=== PATIENT | male | born 1965 | race Asian ===

== ENCOUNTER 2021-01-14 19:12 | Inpatient (IN) | payer BC ==
[~2021-01-14] VITALS: Ht 180.3 cm; Wt 111.3 kg
--- NOTE | 2021-01-14 19:36 | NUR ---
PT ARRIVED TO ROOM, TRANSPORTED BY [facility] [employer], AND ARRIVED, A&OX4, NO ACUTE DISTRESS, MINIMAL DISCOMFORT AT THIS TIME. PT STATES HE HAS INTERMITTENT PAIN THAT COMES AND GOES, BUT IS RELIEVED BY PASSING GAS. PT AMBULATORY AND PROVIDED URINE SAMPLE, AND PA TO BEDSIDE TO EVAL PT. PT ON CR MONITOR, AND HAS A PIV TO RIGHT HAND 20G, STARTED IN OUT SIDE FACILITY.
[2021-01-14] MEDS ORDERED: ACETAMINOPHEN 500 MG TABLET ONE (19:52)
[2021-01-14] MEDS ORDERED: ACETAMINOPHEN 500 MG TABLET PO ONE (20:00)
[2021-01-14] MEDS ORDERED: SODIUM CHLORIDE 0.9% 1,000ML IVBOLUS ONE (20:00)
[2021-01-14] MEDS ORDERED: SODIUM CHLORIDE FLUSH 10ML SYR IVF ONE (20:00)
--- NOTE | 2021-01-14 20:15 | NUR ---
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 PT MED ORDERS RECEIVED, AND TYLENOL GIVEN FOR FEVER, AND IVF HUNG 1 LITER NS TO RUN OVER AN HOUR.
--- NOTE | 2021-01-14 20:38 | NUR ---
PT UP TO RESTROOM WITHOUT ASSITANCE, AND IS STEADY GAIT AND NO ACUTE DISTRESS. PIV INTACT.
--- NOTE | 2021-01-14 21:21 | NUR ---
NO CHANGE IN STATUS, PT RESTING COMFORTABLY WATCHING T.V.
--- NOTE | 2021-01-14 21:51 | NUR ---
REPORT CALLED TO FLOOR. DR LANDEROS TO BEDSIDE TO EVAL PT.
--- NOTE | 2021-01-14 22:00 | NUR ---
PT TAKEN TO FLOOR IN [facility], NO DISTRESS. PIV INTACT, WITH IVF RUNNING.
[2021-01-14 22:21] VITALS: BP 115/70
[2021-01-14] MEDS ORDERED: MELATONIN 5 MG TABLET PO PRN (22:30)
[2021-01-14] MEDS ORDERED: DOCUSATE 100 MG CAPSULE PO PRN (22:30)
[2021-01-14] MEDS ORDERED: ONDANSETRON 2MG/ML, 2ML IVPush PRN (22:30)
[2021-01-14] MEDS ORDERED: ENALAPRILAT 1.25 MG/ML, 2ML IVPush PRN (22:30)
[2021-01-14] MEDS ORDERED: morphine SULFATE 10 MG/ML, 1ML IVPush PRN (22:30)
[2021-01-14] MEDS: PIPERACILLIN/TAZO 3.375 GM in DEXTROSE 5% 50 ML IV SCH (22:47)
[2021-01-14] MEDS: LACTATED RINGERS 1,000 ML IV SCH (22:56)
[2021-01-15 00:28] LABS: MICROSCOPIC INDICATED
[2021-01-15] MEDS: PIPERACILLIN/TAZO 3.375 GM in DEXTROSE 5% 50 ML IV SCH ×2 (04:41→10:54)
[2021-01-15 04:42] VITALS: BP 130/68
[2021-01-15] MEDS: ACETAMINOPHEN 325 MG TABLET PO PRN ×4 (04:49→22:16)
[2021-01-15 05:18] LABS: BASOPHILS % (AUTO) 0 % (0-1); EOSINOPHILS % (AUTO) 0 % (1-7); LYMPHOCYTES % (AUTO) 5 % (22-44); MEAN CORPUSCULAR HEMOGLOBIN 26.5 pg (27.5-34.5); MEAN CORPUSCULAR HGB CONC 33.1 g/dL (33.2-36.2); MONOCYTES % (AUTO) 6 % (2-9); NEUTROPHILS % (AUTO) 88 % (42-75); PLATELET COUNT 433 x10^3/uL (130-400); RED BLOOD COUNT 5.07 x10^6/uL (4.38-5.82); RED CELL DISTRIBUTION WIDTH 13.9 % (9.4-14.8)
[2021-01-15 05:26] LABS: CALCIUM 8.1 mg/dL (8.5-10.1); CHLORIDE 104 mmol/L (98-107)
[2021-01-15 05:34] LABS: ALANINE AMINOTRANSFERASE 44 U/L (12-78); ALBUMIN 2.6 g/dL (3.4-5.0); ALKALINE PHOSPHATASE 110 U/L (45-117); ANION GAP 10 mmol/L (5-15); BILIRUBIN,TOTAL 1.2 mg/dL (0.2-1.0); CREATININE 0.76 mg/dL (0.7-1.3); TOTAL PROTEIN 6.9 g/dL (6.4-8.2)
[2021-01-15 07:22] VITALS: BP 112/67
[2021-01-15] MEDS ORDERED: FLUMAZENIL 0.1 MG/1 ML, 5ML ONE (08:53)
[2021-01-15] MEDS ORDERED: FENTANYL PF 100 MCG/2ML ONE (08:53)
[2021-01-15] MEDS ORDERED: NALOXONE 1 MG/ML, 2ML ONE (08:53)
[2021-01-15] MEDS ORDERED: MIDAZOLAM 1 MG/ML, 5ML ONE (08:53)
[2021-01-15] MEDS ORDERED: LIDOCAINE-MPF 1%, 5ML ONE (09:07)
[2021-01-15] MEDS: LACTATED RINGERS 1,000 ML IV SCH (10:54)
[2021-01-15 12:26] VITALS: BP 147/75
[2021-01-15] MEDS ORDERED: VANCOMYCIN PER PHARMACY MC PRN (14:30)
[2021-01-15] MEDS ORDERED: KETOROLAC 30 MG/1 ML IVPush PRN (14:30)
[2021-01-15] MEDS ORDERED: PHARMACOKINETIC MONITORING MC PRN (15:00)
[2021-01-15] MEDS ORDERED: PHARMACOKINETIC CONSULTATION MC ONE (15:00)
[2021-01-15] MEDS: FLUCONAZOLE 400 MG/200 ML 200 ML IV SCH (15:27)
[2021-01-15] MEDS: ENOXAPARIN 40 MG/0.4 ML SQ SCH (15:27)
[2021-01-15] MEDS ORDERED: PIPERACILLIN/TAZO 4.5 GM in DEXTROSE 5% 100 ML IVPB ONE (16:00)
[2021-01-15] MEDS: VANCOMYCIN 2,500 MG in SODIUM CHLORIDE 0.9% 500 ML IV ONE ×2 (18:36→19:13)
[2021-01-15 19:28] VITALS: BP 124/75
[2021-01-15] MEDS: LACTOBACILLUS CHEW TABLET PO SCH (22:06)
[2021-01-16 00:03] VITALS: BP 106/66
[2021-01-16] MEDS: VANCOMYCIN 2,200 MG in SODIUM CHLORIDE 0.9% 500 ML IV SCH ×2 (02:20→10:15)
[2021-01-16 03:05] LABS: CLOSTRIDIUM DIFFICILE ANTIGEN NEGATIVE; CLOSTRIDIUM DIFFICILE TOXIN NEGATIVE (Negative)
[2021-01-16 05:17] LABS: BASOPHILS % (AUTO) 0 % (0-1); EOSINOPHILS % (AUTO) 0 % (1-7); LYMPHOCYTES % (AUTO) 7 % (22-44); MEAN CORPUSCULAR HEMOGLOBIN 26.4 pg (27.5-34.5); MEAN CORPUSCULAR HGB CONC 33.3 g/dL (33.2-36.2); MEAN PLATELET VOLUME 7.2 fL (7.4-10.4); MONOCYTES % (AUTO) 5 % (2-9); NEUTROPHILS % (AUTO) 87 % (42-75); PLATELET COUNT 403 x10^3/uL (130-400); RED BLOOD COUNT 4.94 x10^6/uL (4.38-5.82); RED CELL DISTRIBUTION WIDTH 14.3 % (9.4-14.8)
[2021-01-16 05:26] LABS: CHLORIDE 103 mmol/L (98-107)
[2021-01-16 05:34] LABS: ALANINE AMINOTRANSFERASE 35 U/L (12-78); ALBUMIN 2.3 g/dL (3.4-5.0); ALKALINE PHOSPHATASE 102 U/L (45-117); ANION GAP 9 mmol/L (5-15); BILIRUBIN,TOTAL 1.1 mg/dL (0.2-1.0); CALCIUM 7.7 mg/dL (8.5-10.1); CREATININE 0.73 mg/dL (0.7-1.3); TOTAL PROTEIN 6.6 g/dL (6.4-8.2)
[2021-01-16] MEDS: LACTOBACILLUS CHEW TABLET PO SCH ×4 (05:54→21:27)
[2021-01-16] MEDS: ACETAMINOPHEN 325 MG TABLET PO PRN ×3 (05:54→19:15)
[2021-01-16] MEDS: LACTATED RINGERS 1,000 ML IV SCH (05:55)
[2021-01-16 08:00] VITALS: BP 117/75
[2021-01-16] MEDS ORDERED: ALBUTEROL SULFATE 2.5 MG/3 ML NPPB PRN (13:00)
[2021-01-16] MEDS ORDERED: FLUTICASONE/VILANTEROL 100-25MCG/INH INH SCH (13:00)
[2021-01-16] MEDS ORDERED: ALLO100T30 PO (13:17)
[2021-01-16] MEDS ORDERED: OMEP-110 PO (13:17)
[2021-01-16] MEDS ORDERED: BUDE10.2 INH (13:18)
[2021-01-16 13:31] VITALS: BP 108/71
[2021-01-16] MEDS: PIPERACILLIN/TAZO 3.375 GM in DEXTROSE 5% 50 ML IV SCH ×2 (14:12→19:47)
[2021-01-16] MEDS: ENOXAPARIN 40 MG/0.4 ML SQ SCH (14:13)
[2021-01-16] MEDS: FLUCONAZOLE 400 MG/200 ML 200 ML IV SCH (15:56)
[2021-01-16 19:01] VITALS: BP 118/70
[2021-01-16] MEDS: VANCOMYCIN 2,000 MG in SODIUM CHLORIDE 0.9% 500 ML IV SCH (22:34)
[2021-01-17] MEDS: PIPERACILLIN/TAZO 3.375 GM in DEXTROSE 5% 50 ML IV SCH ×4 (02:13→20:09)
[2021-01-17 03:20] VITALS: BP 122/72
[2021-01-17 05:52] LABS: BASOPHILS % (AUTO) 1 % (0-1); EOSINOPHILS % (AUTO) 1 % (1-7); LYMPHOCYTES % (AUTO) 10 % (22-44); MEAN CORPUSCULAR HEMOGLOBIN 25.9 pg (27.5-34.5); MEAN CORPUSCULAR HGB CONC 32.7 g/dL (33.2-36.2); MEAN PLATELET VOLUME 7.1 fL (7.4-10.4); MONOCYTES % (AUTO) 7 % (2-9); NEUTROPHILS % (AUTO) 81 % (42-75); PLATELET COUNT 440 x10^3/uL (130-400); RED BLOOD COUNT 4.86 x10^6/uL (4.38-5.82); RED CELL DISTRIBUTION WIDTH 14.2 % (9.4-14.8)
[2021-01-17 06:00] LABS: ALANINE AMINOTRANSFERASE 46 U/L (12-78); ALBUMIN 2.3 g/dL (3.4-5.0); ANION GAP 8 mmol/L (5-15); CALCIUM 8.3 mg/dL (8.5-10.1); CHLORIDE 107 mmol/L (98-107); CREATININE 0.77 mg/dL (0.7-1.3)
[2021-01-17 06:02] LABS: ALKALINE PHOSPHATASE 91 U/L (45-117); BILIRUBIN,TOTAL 0.7 mg/dL (0.2-1.0); TOTAL PROTEIN 6.6 g/dL (6.4-8.2)
[2021-01-17] MEDS: LACTOBACILLUS CHEW TABLET PO SCH ×4 (06:18→20:09)
[2021-01-17 08:34] VITALS: BP 114/70
[2021-01-17] MEDS: VANCOMYCIN 2,000 MG in SODIUM CHLORIDE 0.9% 500 ML IV SCH ×2 (11:03→22:32)
[2021-01-17 14:00] VITALS: BP 113/69
[2021-01-17] MEDS: ENOXAPARIN 40 MG/0.4 ML SQ SCH (14:40)
[2021-01-17] MEDS: FLUCONAZOLE 400 MG/200 ML 200 ML IV SCH (15:41)
[2021-01-17 18:49] VITALS: BP 145/79
[2021-01-18 02:03] VITALS: BP 133/80
[2021-01-18] MEDS: PIPERACILLIN/TAZO 3.375 GM in DEXTROSE 5% 50 ML IV SCH ×2 (02:07→08:25)
[2021-01-18] MEDS: LACTOBACILLUS CHEW TABLET PO SCH (05:12)
[2021-01-18 05:47] LABS: BASOPHILS % (AUTO) 1 % (0-1); EOSINOPHILS % (AUTO) 2 % (1-7); LYMPHOCYTES % (AUTO) 12 % (22-44); MEAN CORPUSCULAR HEMOGLOBIN 26.6 pg (27.5-34.5); MEAN CORPUSCULAR HGB CONC 33.5 g/dL (33.2-36.2); MEAN PLATELET VOLUME 7.4 fL (7.4-10.4); MONOCYTES % (AUTO) 8 % (2-9); NEUTROPHILS % (AUTO) 78 % (42-75); PLATELET COUNT 455 x10^3/uL (130-400); RED BLOOD COUNT 4.87 x10^6/uL (4.38-5.82); RED CELL DISTRIBUTION WIDTH 14.5 % (9.4-14.8)
[2021-01-18 05:50] LABS: CHLORIDE 109 mmol/L (98-107)
[2021-01-18 05:59] LABS: ALANINE AMINOTRANSFERASE 67 U/L (12-78); ALBUMIN 2.2 g/dL (3.4-5.0); ALKALINE PHOSPHATASE 98 U/L (45-117); ANION GAP 9 mmol/L (5-15); BILIRUBIN,TOTAL 0.5 mg/dL (0.2-1.0); CREATININE 1.21 mg/dL (0.7-1.3); TOTAL PROTEIN 6.7 g/dL (6.4-8.2)
[2021-01-18 07:09] VITALS: BP 112/76
[2021-01-18] MEDS ORDERED: AMOX1TAB64 PO (09:18)
[2021-01-18] MEDS ORDERED: METR-90 PO (09:18)
== END 2021-01-18 10:52 | disposition home or self-care (01) | DRG 871 ==
LOC: ED 19:32 → EDIP 21:00 → 4NW 22:14 → DCLOUNGE 01-18 10:45
PROVIDERS: ADMIT Family Medicine; ATTEND Family Medicine
PROC: 0W9J3ZZ Drainage of Pelvic Cavity, Percutaneous Approach (ICD-10-PCS; principal; 2021-01-15)
DX: A41.9 Sepsis, unspecified organism (principal); K35.33 Acute appendicitis with perforation, localized peritonitis, and gangrene, with abscess; E87.1 Hypo-osmolality and hyponatremia; R17 Unspecified jaundice; K57.80 Diverticulitis of intestine, part unspecified, with perforation and abscess without bleeding; B96.20 Unspecified Escherichia coli [E. coli] as the cause of diseases classified elsewhere; E86.1 Hypovolemia; J45.909 Unspecified asthma, uncomplicated; K21.9 Gastro-esophageal reflux disease without esophagitis; M10.9 Gout, unspecified; Z20.822 Contact with and (suspected) exposure to COVID-19
CPT/HCPCS: 36415; 49406; 75989; 80053; 80202; 81001; 83605; 84145; 85025; 87040; 87070; 87075; 87077; 87186; 87205; 87324; 87635; 99156; 99157; 99285; C1894; G0378; J1450; J1650; J2250; J2543; J3010; J3370; C1729; C1769; J2310; J7030; J7040; J7120

== ENCOUNTER 2021-03-04 12:18 | Day surgery (SDC) | payer BC ==
[~2021-03-04] VITALS: Ht 180.3 cm; Wt 99.0 kg
[~2021-03-04 12:18] MED LIST: ALLO100T30 PO; AMOX1TAB64 PO; BUDE10.2 INH; METR-90 PO; OMEP-110 PO
[2021-03-04] MEDS ORDERED: CHLORHEXIDINE 15 ML UDC PO ONE (13:30)
[2021-03-04] MEDS ORDERED: LACTATED RINGERS 1,000 ML IV SCH (13:30)
[2021-03-04 13:39] VITALS: BP 119/79
[2021-03-04] MEDS ORDERED: PLEASE ENTER HEIGHT AND WEIGHT MC SCH (14:00)
[2021-03-04] MEDS ORDERED: EPINEPHRINE 1 MG/ML, 1ML ONE (15:03)
[2021-03-04] MEDS ORDERED: BUPIVACAINE/PF 0.5% ONE (15:03)
[2021-03-04] MEDS ORDERED: SUCCINYLCHOLINE 20 MG/ML, 10ML ONE (15:47)
[2021-03-04] MEDS ORDERED: NEOSTIGMINE 1 MG/ML, 10ML ONE (15:47)
[2021-03-04] MEDS ORDERED: GLYCOPYRROLATE 0.2MG/1ML, 5ML ONE (15:47)
[2021-03-04] MEDS ORDERED: CEFAZOLIN 1,000 MG ONE (15:47)
[2021-03-04] MEDS ORDERED: PROPOFOL 10 MG/ML, 20ML ONE (15:47)
[2021-03-04] MEDS ORDERED: ROCURONIUM 10 MG/ML,10ML ONE (15:47)
[2021-03-04] MEDS ORDERED: ONDANSETRON 2MG/ML, 2ML ONE (15:47)
[2021-03-04] MEDS ORDERED: FENTANYL PF 250 MCG/5ML ONE (16:29)
[2021-03-04] MEDS ORDERED: LABETALOL 5MG/ML, 20ML IV PRN (17:00)
[2021-03-04] MEDS ORDERED: HYDROmorphone 1 MG/ML, 1ML INJ IVPush PRN (17:00)
[2021-03-04] MEDS ORDERED: hydrALAzine 20 MG/ML, 1ML IV PRN (17:00)
[2021-03-04] MEDS ORDERED: PROMETHAZINE 25 MG/ML, 1ML IVPush PRN (17:00)
[2021-03-04] MEDS ORDERED: OXYcodone 5 MG/5 ML ORAL.SOL UDC PO PRN (17:00)
[2021-03-04] MEDS ORDERED: FENTANYL PF 100 MCG/2ML IV PRN (17:00)
[2021-03-04] MEDS ORDERED: LORazepam 2 MG/ML, 1ML IVPush PRN (17:00)
[2021-03-04] MEDS ORDERED: MEPERIDINE/PF 25MG/0.5ML IVPush PRN (17:00)
[2021-03-04] MEDS ORDERED: ACETAMINOPHEN 325 MG TABLET PO PRN (17:00)
[2021-03-04] MEDS ORDERED: EPHEDRINE 50 MG/ML, 1ML IVPush PRN (17:00)
[2021-03-04] MEDS ORDERED: ONDANSETRON 2MG/ML, 2ML IVPush PRN (17:00)
[2021-03-04] MEDS ORDERED: METHOCARBAMOL 1,000 MG in DEXTROSE 5% 100 ML IV PRN (17:00)
== END 2021-03-04 18:46 | disposition home or self-care (01) ==
LOC: OR 12:18
PROVIDERS: ATTEND Surgery
DX: K35.33 Acute appendicitis with perforation, localized peritonitis, and gangrene, with abscess (principal); K38.8 Other specified diseases of appendix; K21.9 Gastro-esophageal reflux disease without esophagitis; M10.9 Gout, unspecified
CPT/HCPCS: 44970; 88304; J0171; J3010; J7120; J0690; J2405; J2704; J2710; J0330